=== PATIENT | female | born 1985 | race Caucasian/White ===

== ENCOUNTER 2017-07-30 17:09 | Emergency (ER) | payer OTHER ==
[~2017-07-30] VITALS: Ht 170.2 cm; Wt 95.3 kg
[~2017-07-30 17:09] MED LIST: ACETAMINOPHEN-1 EAC1 PO; ALBUTEROL INHAL17 GM IH; ALL DAY ALLERGY10 M2 PO; AMOXICILLIN 50500 MG PO; BACTRIM DS TAB1 EACH PO; BACTROBAN CREAM30 GM TOP; BACTROBAN NASAL1 GM NASAL; BENADRYL25 MG PO; CIPRO500 MG PO; CIPROFLOXACIN500 M3 PO; CIPROFLOXIN HC2.5 M1 OPHTHALMIC; CYCLOBENZAPRINE10 MG PO; DARVOCET-N 1001 EACH PO; DESYREL50 MG; FIORICET 50-321 EACH PO; FLEXERIL PO; FLOVENT HFA 4444 MCG IH; HYDROCODONE-AP1 EAC6 PO; HYDROCORTISONE3011 TP; IBUPROFEN 800800 M1; IBUPROFEN 800800 M1 PO; IBUPROFEN 800800 MG PO; KEFLEX500 MG PO; LIDOCAINE VISC100 M1 TOP; MEDROLDOSEPACK PO; NAPROSYN500 M1 PO; NAPROSYN500 MG PO; NOHOMEMEDICATIONS; NORCO 5-325 TA1 EACH PO; No home meds; ONDANSETRON HCL4 M2 PO; PHENERGAN 25 MG25 M1 PO; PHENERGAN 25 MG25 MG PO; PREDNISONE 20 M20 M1 PO; PREDNISONE 20 M20 MG PO; PROAIR HFA8.5 GM PO; PROMETHAZINE HC25 MG RECTAL; PROMETHAZINE-C120 ML PO; PROMS25 WY RECTAL; PYRIDIUM200 M2 PO; ROBAXIN 750 MG750 M1 PO; ROBAXIN500 MG PO; TESSALON200 MG PO; TOBRAMYCIN SULFA5 M1 OP; TOBRAMYCIN SULFA5 ML OPHTHALMIC; TOBREX5 ML OP; TRIAMCINOLONE A80 G2 TOP; ULTRAM 50MG TAB50 MG PO; ULTRAM50 MG PO; VICODIN 5-3001 EACH PO; VICODIN 5-5001 EACH PO; ZOFRAN ODT4 MG PO; ZOFRAN4 MG PO; ZPAK PO
[2017-07-30 17:50] LABS: URINE BILIRUBIN NEGATIVE (Negative); URINE BLOOD NEGATIVE (Negative); URINE CLARITY CLEAR; URINE COLOR STRAW; URINE GLUCOSE-RANDOM NEGATIVE (Negative); URINE KETONES NEGATIVE (Negative); URINE LEUKOCYTES NEGATIVE (Negative); URINE NITRITE NEGATIVE (Negative); URINE PROTEIN NEGATIVE (Negative); URINE UROBILINOGEN 0.2 E.U./dl (0.2-1.0)
[2017-07-30 18:06] LABS: ABSOLUTE BASOPHILS 0.1 thou/uL (0.0-0.2); ABSOLUTE EOSINOPHILS 0.2 thou/uL (0.0-0.7); ABSOLUTE LYMPHOCYTES 2.5 thou/uL (0.8-5.3); ABSOLUTE MONOCYTES 0.7 thou/uL (0.0-1.2); ABSOLUTE NEUTROPHILS 8.1 thou/uL (1.6-8.1); BASOPHILS 0.6 %; EOSINOPHILS 1.5 %; HEMATOCRIT 40.3 % (37.0-47.0); HEMOGLOBIN 13.7 gm/dL (12.0-15.0); MCH 30.7 pg (26.0-34.0); MCV 90.2 fL (80.0-100.0); MONOCYTES 6.2 %; MPV 8.4 fl. (7.2-11.1); NUCLEATED RBCS 0 /100WBC; PLATELET COUNT* 280 thou/uL (150-400); POLYS 69.7 %; RBC 4.46 mil/uL (4.20-5.00); RDW-CV 12.9 % (10.5-14.5); WBC 11.5 thou/uL (4.0-11.0)
[2017-07-30 18:14] LABS: CALCIUM 8.2 mg/dL (8.5-10.1); CREATININE 0.7 mg/dL (0.6-1.3); POTASSIUM 3.8 mmol/L (3.5-5.1)
[2017-07-30 18:19] LABS: ALBUMIN 3.2 g/dL (3.4-5.0); TOTAL BILIRUBIN 0.2 mg/dL (<0.1-1.0); TOTAL PROTEIN 6.9 g/dL (6.4-8.2)
[2017-07-30 18:30] LABS: INFLUENZA A ANTIGEN None Detected (None Detect); INFLUENZA B ANTIGEN None Detected (None Detect)
[2017-07-30] MEDS ORDERED: ZOFRAN ODT4 MG PO (18:33)
[2017-07-30] MEDS ORDERED: TESSALON PERLE100 MG PO (18:33)
[2017-07-30] MEDS ORDERED: VENTOLIN HFA 1818 GM INH (18:33)
[2017-07-30 18:45] VITALS: BP 142/68
== END 2017-07-30 18:45 | disposition home or self-care (01) ==
LOC: M.ERS 17:09
PROVIDERS: Physician Assistant
DX: K52.9 Noninfective gastroenteritis and colitis, unspecified (principal); E86.0 Dehydration; J06.9 Acute upper respiratory infection, unspecified; K86.1 Other chronic pancreatitis; E66.01 Morbid (severe) obesity due to excess calories; F17.210 Nicotine dependence, cigarettes, uncomplicated; Z90.49 Acquired absence of other specified parts of digestive tract; Z98.890 Other specified postprocedural states; Z68.32 Body mass index [BMI] 32.0-32.9, adult

== ENCOUNTER 2018-01-19 15:50 | Emergency (ER) | payer OTHER ==
[~2018-01-19] VITALS: Ht 167.6 cm; Wt 99.8 kg
[~2018-01-19 15:50] MED LIST changes: +TESSALON PERLE100 MG PO; +VENTOLIN HFA 1818 GM INH
[2018-01-19] MEDS ORDERED: IBUPROFEN 800800 M1 PO (16:05)
[2018-01-19 16:21] LABS: URINE BILIRUBIN NEGATIVE (Negative); URINE BLOOD NEGATIVE (Negative); URINE CLARITY CLEAR; URINE COLOR YELLOW; URINE GLUCOSE-RANDOM NEGATIVE (Negative); URINE KETONES NEGATIVE (Negative); URINE LEUKOCYTES-REFLEX NEGATIVE (Negative); URINE NITRITE-REFLEX NEGATIVE (Negative); URINE PROTEIN NEGATIVE (Negative); URINE SPECIFIC GRAVITY 1.015 (1.005-1.030); URINE UROBILINOGEN 0.2 E.U./dl (0.2-1.0)
[2018-01-19 16:31] LABS: ABSOLUTE BASOPHILS 0.1 thou/uL (0.0-0.2); ABSOLUTE EOSINOPHILS 0.2 thou/uL (0.0-0.7); ABSOLUTE MONOCYTES 0.6 thou/uL (0.0-1.2); ABSOLUTE NEUTROPHILS 7.9 thou/uL (1.6-8.1); BASOPHILS 0.6 %; EOSINOPHILS 1.6 %; HEMATOCRIT 42.7 % (37.0-47.0); HEMOGLOBIN 14.5 gm/dL (12.0-15.0); LYMPHOCYTES 18.8 %; MCH 30.6 pg (26.0-34.0); MCHC 33.9 g/dL (28.0-37.0); MCV 90.2 fL (80.0-100.0); MONOCYTES 5.6 %; MPV 8.5 fl. (7.2-11.1); NUCLEATED RBCS 0 /100WBC; PLATELET COUNT* 302 thou/uL (150-400); POLYS 73.4 %; RBC 4.74 mil/uL (4.20-5.00); RDW-CV 13.4 % (10.5-14.5); WBC 10.8 thou/uL (4.0-11.0)
[2018-01-19 16:37] LABS: CALCIUM 8.4 mg/dL (8.5-10.1); CREATININE 0.8 mg/dL (0.6-1.3); POTASSIUM 3.6 mmol/L (3.5-5.1)
[2018-01-19 16:42] LABS: ALBUMIN 3.4 g/dL (3.4-5.0); TOTAL BILIRUBIN 0.2 mg/dL (<0.1-1.0); TOTAL PROTEIN 6.7 g/dL (6.4-8.2)
[2018-01-19 17:20] VITALS: BP 142/95
[2018-01-20] MEDS ORDERED: BUTALB-APAP-CA1 EACH PO (00:09)
[2018-01-20] MEDS ORDERED: ZOFRAN ODT4 MG PO (00:09)
== END 2018-01-19 17:21 | disposition home or self-care (01) ==
LOC: M.ERS 15:50
PROVIDERS: Physician Assistant Surgical
DX: R51 Headache (principal); R11.2 Nausea with vomiting, unspecified; R42 Dizziness and giddiness; K50.90 Crohn's disease, unspecified, without complications; E66.01 Morbid (severe) obesity due to excess calories; Z68.35 Body mass index [BMI] 35.0-35.9, adult; F17.210 Nicotine dependence, cigarettes, uncomplicated; Z90.49 Acquired absence of other specified parts of digestive tract

== ENCOUNTER 2018-01-19 21:47 | Emergency (ER) | payer OTHER ==
[~2018-01-19] VITALS: Ht 165.1 cm; Wt 99.8 kg
[2018-01-20] MEDS ORDERED: BUTALB-APAP-CA1 EACH PO (00:09)
[2018-01-20] MEDS ORDERED: ZOFRAN ODT4 MG PO (00:09)
[2018-01-20 00:23] VITALS: BP 122/62
== END 2018-01-20 00:24 | disposition home or self-care (01) ==
LOC: M.ERS 21:47
DX: R51 Headache (principal); K50.90 Crohn's disease, unspecified, without complications; E66.01 Morbid (severe) obesity due to excess calories; F17.210 Nicotine dependence, cigarettes, uncomplicated; Z68.36 Body mass index [BMI] 36.0-36.9, adult; Z90.49 Acquired absence of other specified parts of digestive tract

== ENCOUNTER 2018-05-11 15:02 | Emergency (ER) | payer OTHER ==
[~2018-05-11] VITALS: Ht 167.6 cm; Wt 106.6 kg
[~2018-05-11 15:02] MED LIST changes: +BUTALB-APAP-CA1 EACH PO
[2018-05-11 15:35] LABS: ABSOLUTE BASOPHILS 0.1 thou/uL (0.0-0.2); ABSOLUTE EOSINOPHILS 0.1 thou/uL (0.0-0.7); ABSOLUTE LYMPHOCYTES 1.8 thou/uL (0.8-5.3); ABSOLUTE MONOCYTES 0.5 thou/uL (0.0-1.2); ABSOLUTE NEUTROPHILS 7.4 thou/uL (1.6-8.1); BASOPHILS 0.5 %; EOSINOPHILS 1.3 %; HEMATOCRIT 40.3 % (37.0-47.0); HEMOGLOBIN 13.9 gm/dL (12.0-15.0); LYMPHOCYTES 18.5 %; MCH 31.1 pg (26.0-34.0); MCHC 34.4 g/dL (28.0-37.0); MCV 90.4 fL (80.0-100.0); MONOCYTES 4.6 %; MPV 9.1 fl. (7.2-11.1); NUCLEATED RBCS 0 /100WBC; PLATELET COUNT* 264 thou/uL (150-400); POLYS 75.1 %; RBC 4.46 mil/uL (4.20-5.00); RDW-CV 13.2 % (10.5-14.5); WBC 9.8 thou/uL (4.0-11.0)
[2018-05-11 15:40] LABS: CALCIUM 8.6 mg/dL (8.5-10.1); CREATININE 0.9 mg/dL (0.6-1.3); POTASSIUM 3.7 mmol/L (3.5-5.1)
[2018-05-11 16:19] LABS: URINE BILIRUBIN NEGATIVE (Negative); URINE BLOOD NEGATIVE (Negative); URINE CLARITY CLEAR; URINE COLOR YELLOW; URINE GLUCOSE-RANDOM NEGATIVE (Negative); URINE KETONES NEGATIVE (Negative); URINE LEUKOCYTES-REFLEX NEGATIVE (Negative); URINE NITRITE-REFLEX NEGATIVE (Negative); URINE PROTEIN NEGATIVE (Negative); URINE SPECIFIC GRAVITY <= 1.005 (1.005-1.030); URINE UROBILINOGEN 0.2 E.U./dl (0.2-1.0)
[2018-05-11] MEDS ORDERED: FLOMAX0.4 MG PO (16:29)
[2018-05-11] MEDS ORDERED: FLEXERIL PO (16:29)
[2018-05-11] MEDS ORDERED: PYRIDIUM200 MG PO (16:29)
[2018-05-11 16:42] VITALS: BP 145/81
== END 2018-05-11 16:43 | disposition home or self-care (01) ==
LOC: M.ERS 15:02
PROVIDERS: Nurse Practitioner
DX: R33.9 Retention of urine, unspecified (principal); F17.210 Nicotine dependence, cigarettes, uncomplicated; K50.90 Crohn's disease, unspecified, without complications; E66.01 Morbid (severe) obesity due to excess calories; Z68.37 Body mass index [BMI] 37.0-37.9, adult; Z90.49 Acquired absence of other specified parts of digestive tract; Z98.890 Other specified postprocedural states

== ENCOUNTER 2018-11-13 21:43 | Emergency (ER) | payer OTHER ==
[~2018-11-13] VITALS: Ht 170.2 cm; Wt 99.8 kg
[~2018-11-13 21:43] MED LIST changes: +FLOMAX0.4 MG PO; +PYRIDIUM200 MG PO
[2018-11-13 22:16] LABS: URINE BILIRUBIN NEGATIVE (Negative); URINE BLOOD NEGATIVE (Negative); URINE CLARITY CLEAR; URINE COLOR YELLOW; URINE GLUCOSE-RANDOM NEGATIVE (Negative); URINE KETONES NEGATIVE (Negative); URINE LEUKOCYTES-REFLEX TRACE (Negative); URINE NITRITE-REFLEX NEGATIVE (Negative); URINE PROTEIN NEGATIVE (Negative); URINE SPECIFIC GRAVITY 1.015 (1.005-1.030); URINE UROBILINOGEN 0.2 E.U./dl (0.2-1.0)
[2018-11-13 22:24] LABS: AMP/METHAMP Negative (Negative); BARBITURATES Negative (Negative); BENZODIAZEPINES Negative (Negative); COCAINE Negative (Negative); METHADONE Negative (Negative); OPIATES Negative (Negative); PCP Negative (Negative); THC Negative (Negative)
[2018-11-13 22:25] LABS: ABSOLUTE BASOPHILS 0.1 thou/uL (0.0-0.2); ABSOLUTE EOSINOPHILS 0.2 thou/uL (0.0-0.7); ABSOLUTE LYMPHOCYTES 2.9 thou/uL (0.8-5.3); ABSOLUTE MONOCYTES 0.8 thou/uL (0.0-1.2); ABSOLUTE NEUTROPHILS 9.2 thou/uL (1.6-8.1); BASOPHILS 0.5 %; EOSINOPHILS 1.6 %; HEMATOCRIT 39.1 % (37.0-47.0); HEMOGLOBIN 13.1 gm/dL (12.0-15.0); LYMPHOCYTES 21.9 %; MCH 30.3 pg (26.0-34.0); MCHC 33.6 g/dL (28.0-37.0); MCV 90.1 fL (80.0-100.0); MONOCYTES 6.4 %; MPV 9.8 fl. (7.2-11.1); NUCLEATED RBCS 0 /100WBC; PLATELET COUNT* 256 thou/uL (150-400); POLYS 69.6 %; RBC 4.34 mil/uL (4.20-5.00); RDW-CV 12.7 % (10.5-14.5); WBC 13.2 thou/uL (4.0-11.0)
[2018-11-13 22:32] LABS: BACTERIA-REFLEX 1-9 Few /HPF (None Seen); CASTS None Seen /LPF (None Seen); CRYSTALS None Seen /LPF (None Seen); SQUAMOUS 0-3 Few /LPF (0-3); URINE RBC 0-2 Rare /HPF (0-2); URINE WBC-REFLEX 0-5 Rare /HPF (0-5)
[2018-11-13 22:32] LABS: CREATININE 0.8 mg/dL (0.6-1.3); POTASSIUM 4.2 mmol/L (3.5-5.1)
[2018-11-13 22:36] LABS: ALBUMIN 3.6 g/dL (3.4-5.0); TOTAL BILIRUBIN 0.2 mg/dL (<0.1-1.0); TOTAL PROTEIN 7.1 g/dL (6.4-8.2)
[2018-11-14] MEDS ORDERED: ONDANSETRON HCL4 M2 PO (00:07)
[2018-11-14] MEDS ORDERED: OMEPRAZOLE 20 M20 M1 PO (00:08)
[2018-11-14 00:33] VITALS: BP 153/64
== END 2018-11-14 00:35 | disposition home or self-care (01) ==
LOC: M.ERS 21:43
PROVIDERS: Physician Assistant
DX: R10.13 Epigastric pain (principal); R10.11 Right upper quadrant pain; F17.210 Nicotine dependence, cigarettes, uncomplicated; K50.90 Crohn's disease, unspecified, without complications; E66.01 Morbid (severe) obesity due to excess calories; K86.1 Other chronic pancreatitis; Z90.49 Acquired absence of other specified parts of digestive tract; Z98.890 Other specified postprocedural states; Z88.8 Allergy status to other drugs, medicaments and biological substances; Z68.34 Body mass index [BMI] 34.0-34.9, adult

== ENCOUNTER 2018-12-20 10:12 | Emergency (ER) | payer OTHER ==
[~2018-12-20] VITALS: Ht 162.6 cm; Wt 117.9 kg
[~2018-12-20 10:12] MED LIST changes: +OMEPRAZOLE 20 M20 M1 PO; +PRILOSEC OTC20 MG PO; +RANITIDINE 150150 M1 PO; +ZOFRAN ODT4 MG DISSOLVE
[2018-12-20 10:24] VITALS: BP 160/98
[2018-12-20 10:47] LABS: URINE BILIRUBIN NEGATIVE (Negative); URINE BLOOD 3+ (Negative); URINE CLARITY CLEAR; URINE COLOR YELLOW; URINE GLUCOSE-RANDOM NEGATIVE (Negative); URINE KETONES NEGATIVE (Negative); URINE LEUKOCYTES-REFLEX NEGATIVE (Negative); URINE NITRITE-REFLEX NEGATIVE (Negative); URINE PROTEIN NEGATIVE (Negative); URINE UROBILINOGEN 0.2 E.U./dl (0.2-1.0)
[2018-12-20 10:52] LABS: SQUAMOUS >10 Many /LPF (0-3)
[2018-12-20 10:53] LABS: BACTERIA-REFLEX 1-9 Few /HPF (None Seen); CASTS None Seen /LPF (None Seen); MUCUS None Seen strn/LPF (None Seen); URINE RBC 3-10 Few /HPF (0-2); URINE WBC-REFLEX 0-5 Rare /HPF (0-5)
[2018-12-20 10:54] LABS: CRYSTALS None Seen /LPF (None Seen)
[2018-12-20] MEDS ORDERED: DIFLUCAN150 MG PO ×2 (11:00→11:01)
== END 2018-12-20 11:12 | disposition home or self-care (01) ==
LOC: M.ERS 10:12
PROVIDERS: Physician Assistant
DX: T19.2XXA Foreign body in vulva and vagina, initial encounter (principal); B37.9 Candidiasis, unspecified; K50.90 Crohn's disease, unspecified, without complications; E66.01 Morbid (severe) obesity due to excess calories; F17.210 Nicotine dependence, cigarettes, uncomplicated; Z90.49 Acquired absence of other specified parts of digestive tract; Z98.51 Tubal ligation status; Z88.5 Allergy status to narcotic agent; X58.XXXA Exposure to other specified factors, initial encounter; Y93.89 Activity, other specified; Y92.89 Other specified places as the place of occurrence of the external cause; Y99.8 Other external cause status; Z68.41 Body mass index [BMI] 40.0-44.9, adult

== ENCOUNTER 2019-01-07 00:24 | Emergency (ER) | payer OTHER ==
[~2019-01-07] VITALS: Ht 167.6 cm; Wt 83.9 kg
[~2019-01-07 00:24] MED LIST changes: +DIFLUCAN150 MG PO
[2019-01-07] MEDS ORDERED: NORCO 5-325 TA1 EAC1 PO (01:08)
[2019-01-07] MEDS ORDERED: AUGMENTIN 875-1 EACH PO (01:08)
[2019-01-07 01:25] VITALS: BP 122/99
== END 2019-01-07 01:25 | disposition home or self-care (01) ==
LOC: M.ERS 00:24
DX: H66.91 Otitis media, unspecified, right ear (principal); F17.210 Nicotine dependence, cigarettes, uncomplicated; K50.90 Crohn's disease, unspecified, without complications; E66.01 Morbid (severe) obesity due to excess calories; Z90.49 Acquired absence of other specified parts of digestive tract; Z88.8 Allergy status to other drugs, medicaments and biological substances; Z98.890 Other specified postprocedural states; Z68.29 Body mass index [BMI] 29.0-29.9, adult

== ENCOUNTER 2019-01-19 14:52 | Emergency (ER) | payer OTHER ==
[~2019-01-19] VITALS: Ht 170.2 cm; Wt 88.5 kg
[~2019-01-19 14:52] MED LIST changes: +AUGMENTIN 875-1 EACH PO; +NORCO 5-325 TA1 EAC1 PO
[2019-01-19] MEDS ORDERED: NOHOMEMEDICATIONS (15:03)
[2019-01-19 15:42] LABS: ABSOLUTE BASOPHILS 0.1 thou/uL (0.0-0.2); ABSOLUTE EOSINOPHILS 0.2 thou/uL (0.0-0.7); ABSOLUTE LYMPHOCYTES 2.6 thou/uL (0.8-5.3); ABSOLUTE MONOCYTES 0.6 thou/uL (0.0-1.2); ABSOLUTE NEUTROPHILS 5.8 thou/uL (1.6-8.1); BASOPHILS 0.7 %; EOSINOPHILS 2.6 %; HEMATOCRIT 41.1 % (37.0-47.0); HEMOGLOBIN 13.8 gm/dL (12.0-15.0); LYMPHOCYTES 27.6 %; MCH 30.6 pg (26.0-34.0); MCHC 33.5 g/dL (28.0-37.0); MCV 91.3 fL (80.0-100.0); MONOCYTES 6.2 %; MPV 9.2 fl. (7.2-11.1); NUCLEATED RBCS 0 /100WBC; PLATELET COUNT* 276 thou/uL (150-400); POLYS 62.9 %; RBC 4.51 mil/uL (4.20-5.00); WBC 9.2 thou/uL (4.0-11.0)
[2019-01-19 15:54] LABS: URINE BILIRUBIN NEGATIVE (Negative); URINE BLOOD 2+ (Negative); URINE CLARITY CLEAR; URINE COLOR YELLOW; URINE GLUCOSE-RANDOM NEGATIVE (Negative); URINE KETONES NEGATIVE (Negative); URINE LEUKOCYTES-REFLEX NEGATIVE (Negative); URINE NITRITE-REFLEX NEGATIVE (Negative); URINE PROTEIN NEGATIVE (Negative); URINE SPECIFIC GRAVITY 1.015 (1.005-1.030); URINE UROBILINOGEN 0.2 E.U./dl (0.2-1.0)
[2019-01-19 16:01] LABS: CALCIUM 8.1 mg/dL (8.5-10.1); CREATININE 0.9 mg/dL (0.6-1.3); POTASSIUM 3.9 mmol/L (3.5-5.1)
[2019-01-19 16:05] LABS: TOTAL BILIRUBIN 0.1 mg/dL (<0.1-1.0)
[2019-01-19 16:06] LABS: MUCUS None Seen strn/LPF (None Seen); SQUAMOUS >10 Many /LPF (0-3); URINE RBC 3-10 Few /HPF (0-2)
[2019-01-19 16:07] LABS: BACTERIA-REFLEX 1-9 Few /HPF (None Seen); CASTS None Seen /LPF (None Seen); CRYSTALS None Seen /LPF (None Seen)
[2019-01-19 16:08] LABS: URINE WBC-REFLEX None Seen /HPF (0-5)
[2019-01-19] MEDS ORDERED: PHENERGAN 25 MG25 M1 PO (19:54)
[2019-01-19] MEDS ORDERED: NORCO 7.5-3251 EACH PO (19:54)
[2019-01-19] MEDS ORDERED: FLAGYL500 M1 PO (19:54)
[2019-01-19 20:08] VITALS: BP 113/58
== END 2019-01-19 20:09 | disposition home or self-care (01) ==
LOC: M.ERS 14:52
PROVIDERS: Emergency Medicine
DX: K50.90 Crohn's disease, unspecified, without complications (principal); R51 Headache; R11.2 Nausea with vomiting, unspecified; K86.1 Other chronic pancreatitis; E66.01 Morbid (severe) obesity due to excess calories; F17.210 Nicotine dependence, cigarettes, uncomplicated; Z88.5 Allergy status to narcotic agent; Z88.8 Allergy status to other drugs, medicaments and biological substances; Z90.49 Acquired absence of other specified parts of digestive tract; Z98.890 Other specified postprocedural states; Z68.30 Body mass index [BMI] 30.0-30.9, adult

== ENCOUNTER 2019-05-30 13:46 | Emergency (ER) | payer OTHER ==
[~2019-05-30] VITALS: Ht 177.8 cm; Wt 99.8 kg
[~2019-05-30 13:46] MED LIST changes: +FLAGYL500 M1 PO; +NORCO 7.5-3251 EACH PO
[2019-05-30 15:15] LABS: INFLUENZA A ANTIGEN Negative (Negative); INFLUENZA B ANTIGEN Negative (Negative)
[2019-05-30 16:14] LABS: ABSOLUTE BASOPHILS 0.1 thou/uL (0.0-0.2); ABSOLUTE EOSINOPHILS 0.2 thou/uL (0.0-0.7); ABSOLUTE LYMPHOCYTES 1.8 thou/uL (0.8-5.3); ABSOLUTE MONOCYTES 0.4 thou/uL (0.0-1.2); ABSOLUTE NEUTROPHILS 4.6 thou/uL (1.6-8.1); BASOPHILS 1.3 %; EOSINOPHILS 3.4 %; HEMOGLOBIN 13.6 gm/dL (12.0-15.0); LYMPHOCYTES 25.4 %; MCH 29.5 pg (26.0-34.0); MCHC 34.1 g/dL (28.0-37.0); MCV 86.7 fL (80.0-100.0); MONOCYTES 6.2 %; NUCLEATED RBCS 0 /100WBC; PLATELET COUNT* 332 thou/uL (150-400); POLYS 63.7 %; RBC 4.62 mil/uL (4.20-5.00); RDW-CV 13.8 % (10.5-14.5); WBC 7.3 thou/uL (4.0-11.0)
[2019-05-30 16:23] LABS: CALCIUM 8.3 mg/dL (8.5-10.1); CREATININE 0.9 mg/dL (0.6-1.3); POTASSIUM 3.7 mmol/L (3.5-5.1)
[2019-05-30] MEDS ORDERED: ONDANSETRON HCL4 M3 PO (16:25)
[2019-05-30] MEDS ORDERED: ZPAK PO (16:25)
[2019-05-30] MEDS ORDERED: MEDROLDOSEPACK PO (16:25)
[2019-05-30] MEDS ORDERED: PROMETHAZI6.25 MG/5 PO (16:25)
[2019-05-30] MEDS ORDERED: PROAIR HFA8.5 GM INH (16:25)
[2019-05-30 16:29] LABS: ALBUMIN 3.5 g/dL (3.4-5.0); TOTAL BILIRUBIN 0.4 mg/dL (<0.1-1.0); TOTAL PROTEIN 7.2 g/dL (6.4-8.2)
[2019-05-30 16:40] LABS: URINE BILIRUBIN NEGATIVE (Negative); URINE BLOOD 3+ (Negative); URINE CLARITY CLOUDY; URINE COLOR YELLOW; URINE GLUCOSE-RANDOM NEGATIVE (Negative); URINE KETONES NEGATIVE (Negative); URINE LEUKOCYTES-REFLEX NEGATIVE (Negative); URINE NITRITE-REFLEX NEGATIVE (Negative); URINE PROTEIN 2+ (Negative); URINE SPECIFIC GRAVITY 1.025 (1.005-1.030); URINE UROBILINOGEN 0.2 E.U./dl (0.2-1.0)
[2019-05-30 16:52] LABS: SQUAMOUS >10 Many /LPF (0-3)
[2019-05-30 16:53] LABS: BACTERIA-REFLEX 1-9 Few /HPF (None Seen); CASTS None Seen /LPF (None Seen); CRYSTALS None Seen /LPF (None Seen); MUCUS 0-3 Light strn/LPF (None Seen)
[2019-05-30 16:54] LABS: URINE WBC-REFLEX None Seen /HPF (0-5)
[2019-05-30 17:28] VITALS: BP 152/85
== END 2019-05-30 17:29 | disposition home or self-care (01) ==
LOC: M.ERS 13:46
PROVIDERS: Physician Assistant
DX: J18.9 Pneumonia, unspecified organism (principal); E16.2 Hypoglycemia, unspecified; K50.90 Crohn's disease, unspecified, without complications; F17.210 Nicotine dependence, cigarettes, uncomplicated; Z90.49 Acquired absence of other specified parts of digestive tract; Z98.890 Other specified postprocedural states; Z88.5 Allergy status to narcotic agent; Z88.8 Allergy status to other drugs, medicaments and biological substances

== ENCOUNTER 2019-06-01 03:19 | Emergency (ER) | payer OTHER ==
[~2019-06-01] VITALS: Ht 170.2 cm; Wt 127.0 kg
[~2019-06-01 03:19] MED LIST changes: +ONDANSETRON HCL4 M3 PO; +PROAIR HFA8.5 GM INH; +PROMETHAZI6.25 MG/5 PO
[2019-06-01 03:23] VITALS: BP 174/137
== END 2019-06-01 03:40 | disposition home or self-care (01) ==
LOC: M.ERS 03:19
DX: R05 Cough (principal); E66.01 Morbid (severe) obesity due to excess calories; F17.210 Nicotine dependence, cigarettes, uncomplicated; Z88.5 Allergy status to narcotic agent; Z88.8 Allergy status to other drugs, medicaments and biological substances; Z90.49 Acquired absence of other specified parts of digestive tract; Z98.51 Tubal ligation status; Z98.890 Other specified postprocedural states; Z68.41 Body mass index [BMI] 40.0-44.9, adult

== ENCOUNTER 2019-11-26 16:23 | Emergency (ER) | payer OTHER ==
[~2019-11-26] VITALS: Ht 167.6 cm; Wt 102.1 kg
[2019-11-26 17:10] LABS: URINE BLOOD 3+ (Negative); URINE CLARITY CLEAR; URINE COLOR YELLOW; URINE GLUCOSE-RANDOM NEGATIVE (Negative); URINE KETONES NEGATIVE (Negative); URINE LEUKOCYTES-REFLEX NEGATIVE (Negative); URINE NITRITE-REFLEX NEGATIVE (Negative); URINE PROTEIN NEGATIVE (Negative); URINE SPECIFIC GRAVITY 1.015 (1.005-1.030); URINE UROBILINOGEN 0.2 E.U./dl (0.2-1.0)
[2019-11-26 17:12] LABS: ICTOTEST (BILI CONFIRMATORY) Negative (Negative); URINE BILIRUBIN 1+ (Negative)
[2019-11-26 17:16] LABS: SQUAMOUS 0-3 Few /LPF (0-3); URINE RBC 3-10 Few /HPF (0-2); URINE WBC-REFLEX 0-5 Rare /HPF (0-5)
[2019-11-26 17:17] LABS: BACTERIA-REFLEX 1-9 Few /HPF (None Seen); CASTS None Seen /LPF (None Seen); CRYSTALS None Seen /LPF (None Seen); MUCUS 0-3 Light strn/LPF (None Seen)
[2019-11-26 17:30] LABS: ABSOLUTE EOSINOPHILS 0.1 thou/uL (0.0-0.7); ABSOLUTE LYMPHOCYTES 1.9 thou/uL (0.8-5.3); ABSOLUTE MONOCYTES 0.4 thou/uL (0.0-1.2); ABSOLUTE NEUTROPHILS 4.9 thou/uL (1.6-8.1); BASOPHILS 0.6 %; EOSINOPHILS 1.9 %; HEMATOCRIT 40.4 % (37.0-47.0); HEMOGLOBIN 13.9 gm/dL (12.0-15.0); LYMPHOCYTES 25.7 %; MCH 30.4 pg (26.0-34.0); MCHC 34.3 g/dL (28.0-37.0); MCV 88.5 fL (80.0-100.0); MONOCYTES 5.8 %; MPV 9.8 fl. (7.2-11.1); NUCLEATED RBCS 0 /100WBC; PLATELET COUNT* 260 thou/uL (150-400); RBC 4.56 mil/uL (4.20-5.00); RDW-CV 13.7 % (10.5-14.5); WBC 7.4 thou/uL (4.0-11.0)
[2019-11-26 17:39] LABS: CALCIUM 8.5 mg/dL (8.5-10.1); CREATININE 0.9 mg/dL (0.6-1.3)
[2019-11-26 17:43] LABS: ALBUMIN 3.5 g/dL (3.4-5.0); TOTAL BILIRUBIN 0.3 mg/dL (<0.1-1.0); TOTAL PROTEIN 7.2 g/dL (6.4-8.2)
[2019-11-26] MEDS ORDERED: NORCO 5-325 TA1 EAC1 PO (19:00)
[2019-11-26] MEDS ORDERED: MEDROXYPROGESTE10 MG PO (19:00)
[2019-11-26 19:13] VITALS: BP 156/96
== END 2019-11-26 19:13 | disposition home or self-care (01) ==
LOC: M.ERS 16:23
PROVIDERS: Nurse Practitioner Family
DX: N94.6 Dysmenorrhea, unspecified (principal); R10.30 Lower abdominal pain, unspecified; M54.5 Low back pain; F17.210 Nicotine dependence, cigarettes, uncomplicated; K50.90 Crohn's disease, unspecified, without complications; K86.1 Other chronic pancreatitis; E66.01 Morbid (severe) obesity due to excess calories; Z88.5 Allergy status to narcotic agent; Z88.8 Allergy status to other drugs, medicaments and biological substances; Z98.51 Tubal ligation status; Z68.36 Body mass index [BMI] 36.0-36.9, adult; Z90.49 Acquired absence of other specified parts of digestive tract

== ENCOUNTER 2019-12-04 23:38 | Emergency (ER) | payer OTHER ==
[~2019-12-04] VITALS: Ht 167.6 cm; Wt 102.1 kg
[~2019-12-04 23:38] MED LIST changes: +MEDROXYPROGESTE10 MG PO
[2019-12-05] MEDS ORDERED: PENICILLIN V P500 MG PO (00:10)
[2019-12-05] MEDS ORDERED: HYDROCODON-ACE1 EAC7 PO (00:10)
[2019-12-05] MEDS ORDERED: IBUPROFEN 800800 M1 PO (00:10)
[2019-12-05 00:40] VITALS: BP 132/79
== END 2019-12-05 00:40 | disposition home or self-care (01) ==
LOC: M.ERS 23:38
DX: K05.6 Periodontal disease, unspecified (principal); K02.9 Dental caries, unspecified; R11.2 Nausea with vomiting, unspecified; K50.90 Crohn's disease, unspecified, without complications; E66.01 Morbid (severe) obesity due to excess calories; F17.210 Nicotine dependence, cigarettes, uncomplicated; Z90.49 Acquired absence of other specified parts of digestive tract; Z98.890 Other specified postprocedural states; Z68.36 Body mass index [BMI] 36.0-36.9, adult; Z88.6 Allergy status to analgesic agent; Z88.8 Allergy status to other drugs, medicaments and biological substances; Z98.51 Tubal ligation status

== ENCOUNTER 2020-01-25 16:21 | Emergency (ER) | payer OTHER ==
[~2020-01-25] VITALS: Ht 170.2 cm; Wt 95.3 kg
[~2020-01-25 16:21] MED LIST changes: +HYDROCODON-ACE1 EAC7 PO; +PENICILLIN V P500 MG PO
[2020-01-25] MEDS ORDERED: OMEPRAZOLE 20 M20 M1 PO (16:35)
[2020-01-25] MEDS ORDERED: ZOFRAN ODT4 MG DISSOLVE (16:36)
[2020-01-25 16:56] LABS: URINE BLOOD TRACE (Negative); URINE CLARITY CLEAR; URINE COLOR YELLOW; URINE GLUCOSE-RANDOM NEGATIVE (Negative); URINE KETONES TRACE (Negative); URINE LEUKOCYTES-REFLEX NEGATIVE (Negative); URINE NITRITE-REFLEX NEGATIVE (Negative); URINE PROTEIN TRACE (Negative); URINE SPECIFIC GRAVITY >= 1.030 (1.005-1.030); URINE UROBILINOGEN 0.2 E.U./dl (0.2-1.0)
[2020-01-25 16:59] LABS: ICTOTEST (BILI CONFIRMATORY) Negative (Negative); URINE BILIRUBIN 1+ (Negative)
[2020-01-25 17:57] LABS: ABSOLUTE BASOPHILS 0.1 thou/uL (0.0-0.2); ABSOLUTE EOSINOPHILS 0.2 thou/uL (0.0-0.7); ABSOLUTE LYMPHOCYTES 1.7 thou/uL (0.8-5.3); ABSOLUTE MONOCYTES 0.5 thou/uL (0.0-1.2); ABSOLUTE NEUTROPHILS 6.9 thou/uL (1.6-8.1); BASOPHILS 0.6 %; EOSINOPHILS 1.9 %; HEMATOCRIT 42.6 % (37.0-47.0); HEMOGLOBIN 14.8 gm/dL (12.0-15.0); MCH 30.6 pg (26.0-34.0); MCHC 34.7 g/dL (28.0-37.0); MCV 88.1 fL (80.0-100.0); MONOCYTES 5.9 %; MPV 10.4 fl. (7.2-11.1); NUCLEATED RBCS 0 /100WBC; PLATELET COUNT* 240 thou/uL (150-400); POLYS 73.6 %; RBC 4.83 mil/uL (4.20-5.00); RDW-CV 13.6 % (10.5-14.5); WBC 9.3 thou/uL (4.0-11.0)
[2020-01-25 18:06] LABS: CALCIUM 8.8 mg/dL (8.5-10.1); CREATININE 1.2 mg/dL (0.6-1.3); POTASSIUM 4.1 mmol/L (3.5-5.1)
[2020-01-25 18:10] LABS: TOTAL BILIRUBIN 0.4 mg/dL (<0.1-1.0); TOTAL PROTEIN 7.9 g/dL (6.4-8.2)
[2020-01-25] MEDS ORDERED: MAGIC MOUTHWASH SW&SWALLOW (19:28)
[2020-01-25] MEDS ORDERED: CARAFATE 1 GM TA1 G1 PO (19:28)
[2020-01-25] MEDS ORDERED: NORCO 5-325 TA1 EAC2 PO (19:28)
[2020-01-25 20:08] VITALS: BP 138/87
== END 2020-01-25 20:09 | disposition home or self-care (01) ==
LOC: M.ERS 16:21
PROVIDERS: Family Medicine
DX: R10.13 Epigastric pain (principal); R11.2 Nausea with vomiting, unspecified; R42 Dizziness and giddiness; F17.210 Nicotine dependence, cigarettes, uncomplicated; E66.01 Morbid (severe) obesity due to excess calories; Z88.5 Allergy status to narcotic agent; Z79.899 Other long term (current) drug therapy; Z90.49 Acquired absence of other specified parts of digestive tract; Z98.890 Other specified postprocedural states

== ENCOUNTER 2020-03-30 16:28 | Emergency (ER) | payer OTHER ==
[~2020-03-30] VITALS: Ht 167.6 cm; Wt 99.8 kg
[~2020-03-30 16:28] MED LIST changes: +CARAFATE 1 GM TA1 G1 PO; +MAGIC MOUTHWASH SW&SWALLOW; +NORCO 5-325 TA1 EAC2 PO
[2020-03-30 16:35] VITALS: BP 152/92
[2020-03-30] MEDS ORDERED: AMOXICILLIN 50500 MG PO (16:41)
[2020-03-30] MEDS ORDERED: NORCO 5-325 TA1 EAC2 PO (16:41)
== END 2020-03-30 16:58 | disposition home or self-care (01) ==
LOC: M.ERS 16:28
DX: K04.7 Periapical abscess without sinus (principal); K50.90 Crohn's disease, unspecified, without complications; E66.01 Morbid (severe) obesity due to excess calories; F17.210 Nicotine dependence, cigarettes, uncomplicated; Z68.35 Body mass index [BMI] 35.0-35.9, adult; Z88.8 Allergy status to other drugs, medicaments and biological substances; Z98.51 Tubal ligation status; Z90.49 Acquired absence of other specified parts of digestive tract; Z98.890 Other specified postprocedural states

== ENCOUNTER 2020-09-20 02:18 | Emergency (ER) | payer OTHER ==
[~2020-09-20] VITALS: Ht 167.6 cm; Wt 99.8 kg
[2020-09-20] MEDS ORDERED: FLEXERIL PO (02:50)
[2020-09-20] MEDS ORDERED: TRAMADOL 50 MG50 MG PO (02:50)
[2020-09-20] MEDS ORDERED: PREDNISONE PO (02:53)
[2020-09-20 04:08] VITALS: BP 163/90
== END 2020-09-20 04:09 | disposition home or self-care (01) ==
LOC: M.ERS 02:18
DX: M54.16 Radiculopathy, lumbar region (principal); E66.01 Morbid (severe) obesity due to excess calories; F17.210 Nicotine dependence, cigarettes, uncomplicated; Z68.35 Body mass index [BMI] 35.0-35.9, adult; Z88.8 Allergy status to other drugs, medicaments and biological substances; K50.90 Crohn's disease, unspecified, without complications; Z98.51 Tubal ligation status; Z90.49 Acquired absence of other specified parts of digestive tract; Z98.890 Other specified postprocedural states

== ENCOUNTER 2021-01-05 18:35 | Emergency (ER) | payer OTHER ==
[~2021-01-05] VITALS: Ht 167.6 cm; Wt 81.7 kg
[~2021-01-05 18:35] MED LIST changes: +PREDNISONE PO; +TRAMADOL 50 MG50 MG PO
[2021-01-05] MEDS ORDERED: CEPHALEXIN500 MG PO (20:52)
[2021-01-05] MEDS ORDERED: APAP W/CODEINE1 TA2 PO (20:53)
[2021-01-05 21:00] VITALS: BP 162/78
== END 2021-01-05 21:00 | disposition home or self-care (01) ==
LOC: M.ERS 18:35
DX: S01.511A Laceration without foreign body of lip, initial encounter (principal); S16.1XXA Strain of muscle, fascia and tendon at neck level, initial encounter; S63.8X1A Sprain of other part of right wrist and hand, initial encounter; M25.512 Pain in left shoulder; M54.5 Low back pain; E66.01 Morbid (severe) obesity due to excess calories; F17.210 Nicotine dependence, cigarettes, uncomplicated; Z90.49 Acquired absence of other specified parts of digestive tract; Z98.890 Other specified postprocedural states; Z68.29 Body mass index [BMI] 29.0-29.9, adult; Z88.8 Allergy status to other drugs, medicaments and biological substances; Y04.0XXA Assault by unarmed brawl or fight, initial encounter; Y93.89 Activity, other specified; Y92.89 Other specified places as the place of occurrence of the external cause; Y99.8 Other external cause status

== ENCOUNTER 2021-01-06 14:49 | Emergency (ER) | payer OTHER ==
[~2021-01-06] VITALS: Ht 170.2 cm; Wt 99.8 kg
[~2021-01-06 14:49] MED LIST changes: +APAP W/CODEINE1 TA2 PO; +CEPHALEXIN500 MG PO
[2021-01-06 17:13] VITALS: BP 111/77
== END 2021-01-06 17:13 | disposition left against medical advice (07) ==
LOC: M.ERS 14:49
DX: R20.0 Anesthesia of skin (principal); Z53.21 Procedure and treatment not carried out due to patient leaving prior to being seen by health care provider

== ENCOUNTER 2021-03-31 18:01 | Emergency (ER) | payer OTHER ==
[~2021-03-31] VITALS: Ht 167.6 cm; Wt 117.9 kg
[2021-03-31] MEDS ORDERED: CLINDAMYCIN HC300 MG PO (18:58)
[2021-03-31 19:07] VITALS: BP 152/88
== END 2021-03-31 19:08 | disposition home or self-care (01) ==
LOC: M.ERS 18:01
DX: L02.416 Cutaneous abscess of left lower limb (principal); L02.415 Cutaneous abscess of right lower limb; E66.01 Morbid (severe) obesity due to excess calories; F17.210 Nicotine dependence, cigarettes, uncomplicated; Z88.5 Allergy status to narcotic agent; Z90.49 Acquired absence of other specified parts of digestive tract; Z98.51 Tubal ligation status